=== PATIENT | male | born 1985 | race Caucasian/White ===

== ENCOUNTER 2017-05-12 14:30 | Emergency (ER) | payer OTHER ==
[~2017-05-12] VITALS: Ht 182.9 cm; Wt 86.2 kg
[2017-05-12] MEDS ORDERED: KLONOPIN1 M1 PO (14:41)
[2017-05-12] MEDS ORDERED: ZOLOFT25 M1 PO (14:42)
--- NOTE | 2017-05-12 14:47 | ED PSYCHIATRIC COMPLAINT ---
History of Present Illness General Chief Complaint: Psychiatric Related Complaint Stated Complaint: BIBA +SI/ANXIETY Source: patient Exam Limitations: no limitations Reconcile Medications Clonazepam (Klonopin) 1 MG TABLET 1 TAB PO TIDPRN ANXIETY (Reported) Sertraline HCl (Zoloft) 25 MG TABLET 1 TAB PO DAILY DEPRESSION (Reported) Triage Note: BIBA FROM [facility], REPORTING +SI X 3 DAYS, HX OF ATTEMPT ON 2016. PATIENT DENIES PLAN THIS TIME, DENIES HI. PATIENT ALERT, ORIENTED, DENIES CP OR DIFFICULTY BREATHING. PATIENT CALM, COOPERATIVE, PLEASANT. SECURITY CALLED FOR WANDING, PATIENT CHANGED INTO BLUE PAPER SCRUBS, VITALS OBTAINED. Triage Nurses Notes Reviewed? yes Onset: Abrupt Timing: recent history HPI: 31-year-old male comes into the emergency room with suicidal thoughts and anxiety and depression. He reports he has a history of trying to hurt himself in the past. He has been feeling increasingly anxious. Denies any antibiotics. Denies any drug use or alcohol use. He is on psychiatric medication currently. (Nestor Haines) Vital Signs & Intake/Output Vital Signs & Intake/Output Vital Signs Date Time Temp Pulse Resp B/P B/P Pulse O2 O2 Flow FiO2 Mean Ox Delivery Rate 05/13 1532 98.2 88 16 120/82 97 Room Air Allergies Coded Allergies: No Known Allergies (05/13/17) (Nayana MCKEON,Boby Velasco) Past History Travel History Traveled to [place] past 21 day No Medical History Any Pertinent Medical History? see below for history Neurological: NONE EENT: NONE Cardiovascular: NONE Respiratory: NONE Gastrointestinal: NONE Hepatic: NONE Renal: NONE Musculoskeletal: NONE Psychiatric: anxiety Endocrine: NONE Blood Disorders: NONE Cancer(s): NONE WILDLIFE BIOLOGIST/Reproductive: NONE Surgical History Surgical History: non-contributory Psychosocial History What is your primary language Setswana Tobacco Use: Quit >30 days ago ETOH Use: occasional use Illicit Drug Use: cocaine Family History Hx Contributory? No (Nestor Haines) Review of Systems Review of Systems Constitutional: Reports: no symptoms. EENTM: Reports: no symptoms. Respiratory: Reports: no symptoms. Cardiovascular: Reports: no symptoms. GI: Reports: no symptoms. Genitourinary: Reports: no symptoms. Musculoskeletal: Reports: no symptoms. Skin: Reports: no symptoms. Neurological/Psychological: Reports: see HPI. Hematologic/Endocrine: Reports: no symptoms. Immunologic/Allergic: Reports: no symptoms. All Other Systems: Reviewed and Negative (Nestor Haines) Physical Exam Physical Exam General Appearance: well developed/nourished, mild distress Head: atraumatic Eyes: Bilateral: normal appearance. Ears, Nose, Throat: normal ENT inspection, hearing grossly normal Neck: normal inspection Respiratory: normal breath sounds, no respiratory distress Cardiovascular: regular rate/rhythm Extremities: normal range of motion Neurological/Psychiatric: awake, alert Appearance/Memory/Insight: appropriate appearance Behavoir/Eye Contact/Speech: cooperative Thoughts/Hallucinations: no apparent hallucination Skin: intact, normal color, warm/dry (Nestor Haines) SAD PERSONS SAD PERSONS Response Value Male Sex? yes 1 Depression/Hopelessness? yes 2 Previous Attempts/Psych Care yes 1 Single//? yes 1 Social Support? has no support 1 Total 6 SAD PERSONS Done? yes (Boby Calderon DO) Progress Differential Diagnosis: dementia, drug intoxication, drug overdose, drug withdrawal, anxiety, depression, PTSD, schizoaffective, schizophrenia, bipolar, Plan of Care: Orders Procedure Date/time Status Regular Diet 05/13 B Active ED CRISIS PSYCH CONSULT 05/12 1527 Active Current Medications Sig/Kym Start time Last Medication Dose Stop Time Status Admin Sertraline HCl 25 MG AT BEDTIME 05/13 2199 AC (Zoloft) Mirtazapine 7.5 MG AT BEDTIME 05/12 2199 UNVr 05/12 (Remeron) 2049 Zolpidem Tartrate 10 MG AT BEDTIME 05/12 2199 AC 05/12 (Ambien) 205 Clonazepam 1 MG TIDPRN PRN 05/12 1944 AC 05/13 (Klonopin 1MG Tab) 05/20 1943 0643 Laboratory Tests 05/12/17 1606: Anion Gap 11, Estimated GFR > 60, BUN/Creatinine Ratio 16.7, Glucose 115 H, Calcium 9.7, Total Bilirubin 0.6, AST 17, ALT 40, Alkaline Phosphatase 92, Total Protein 7.4, Albumin 4.3, Globulin 3.1, Albumin/Globulin Ratio 1.4, CBC w Diff NO MAN DIFF REQ, RBC 4.99, MCV 87.3, MCH 28.6, MCHC 32.8 L, RDW 13.1, MPV 7.9, Gran % 82.7 H, Lymphocytes % 12.6 L, Monocytes % 4.7, Eosinophils % 0, Basophils % 0, Absolute Granulocytes 7.2 H, Absolute Lymphocytes 1.1 L, Absolute Monocytes 0.4, Absolute Eosinophils 0, Absolute Basophils 0, Serum Alcohol < 10.0 Hand-Off Endorsed To: Boby Kraus MD (Nestor Haines) Comments: 05/12/2017 7:43:35 PM patient signed out to me by VEGA. At this point patient is an ongoing bed search. 05/13/2017 7:10:32 AM patient signed out to Dr. Calderon at shift foreign exchange services manager. (Boby Kraus MD) Departure Departure Condition: Stable Departure Forms: Customer Survey General Discharge Information (Nestor Haines) Departure Disposition: OTHER [facility] ([facility]) Clinical Impression Primary Impression: Depression Comments 05/13/17 3:15 PM Patient was signed out to nh by Dr. Kraus at 7 AM. He has been accepted for admission to [facility] to their inpatient psychiatric unit for depression. The accepting doctor is Dr. Nguyen. (Boby Calderon DO) Absolute Monocytes 0.4, Absolute Eosinophils 0, Absolute Basophils 0, Serum Alcohol < 10.0 (Nestor Haines) Comments: 05/12/2017 7:43:35 PM patient signed out to me by VEGA. At this point patient is an ongoing bed search. 05/13/2017 7:10:32 AM patient signed out to Dr. Calderon at shift foreign exchange services manager. (Boby Kraus MD) Departure Departure Condition: Stable Departure Forms: Customer Survey General Discharge Information (Nestor Haines) Departure Disposition: OTHER [facility] ([facility]) Clinical Impression Primary Impression: Depression Comments 05/13/17 3:15 PM Patient was signed out to me by Dr. Kraus at 7 AM. He has been accepted for admission to [facility] to their inpatient psychiatric unit for depression. The accepting doctor is Dr. Nguyen. (Boby Calderon DO
--- NOTE | 2017-05-12 16:14 | ED PSY CRISIS COLLATERAL NOTE ---
Collateral Note Collateral Note Family/Inform/Stanislav Contacts: Spoke with Susie Irvin from [facility], who had called to report that they were sending patient to E.D. via ambulance as Susie very concerned as patient has been depressed, yet he has stopped taking his medication, and that he had a serious suicide attemp in December and now can't stay locally with his brother, who feels that he cannot adequately care for patient. So, patient has been staying with his father and mother who live in [place]. Consequently, patient has not been regularly attewnding [facility] IOP, as it takes more motivation than Wi;ll can exhibit--as well as time-- inorder to go to [facility] from [place] Patient has been hospitalized a number of times. He is treated for depression, and is currently being seen by Petra Mariscal APRN at [facility]. Patient is taking Clonazapam 3- 4x per day.; Sertraline 100m.g. daily and ambien h.s. (unsure of dose). Patient has not refilled these scripts. Patient's father is coming to E D with patient, however, father does not speak Portuguese. [facility] feel that patient at risk. They report that he has extremely poor history of follow-up.
[2017-05-12 16:20] LABS: ABSOLUTE BASOPHIL COUNT 0 /CUMM (0.0-0.2); ABSOLUTE EOSINOPHIL COUNT 0 /CUMM (0.0-0.7); ABSOLUTE GRANULOCYTE CT 7.2 /CUMM (1.4-6.5); ABSOLUTE LYMPH COUNT 1.1 /CUMM (1.2-3.4); ABSOLUTE MONOCYTE COUNT 0.4 /CUMM (0.10-0.60); BASOPHIL % 0 % (0.0-2.0); EOSINOPHIL % 0 % (0-5); GRANULOCYTE % 82.7 % (42.2-75.2); HEMATOCRIT 43.6 % (42-52); MEAN CORPUSCULAR HGB 28.6 PG (27.0-31.0); MEAN CORPUSCULAR HGB CONC 32.8 G/DL (33.0-37.0); MEAN CORPUSCULAR VOLUME 87.3 FL (80.0-94.0); MEAN PLATELET VOLUME 7.9 FL (7.4-10.4); PLATELET COUNT 290 /CUMM (130-400); RBC DISTRIBUTION WIDTH 13.1 % (11.5-14.5); RED BLOOD CELL CT 4.99 /CUMM (4.70-6.10); WHITE BLOOD CELL COUNT 8.7 /CUMM (4.8-10.8)
--- NOTE | 2017-05-12 18:10 | ED PSYCH CRISIS CONSULTATION ---
See Addendum Crisis Consult Basic Assessment Date of Consult: 05/12/17 Responsible Person/Accompanied By: self Insurance Authorization: Insurance #1: Insurance name: FRANCIA ALEXANDER Phone number: Policy number: [id number] Group number: Authorization number: ED Provider: Patient's ED Provider: Nestor Haines Primary Care Physician: Patient's PCP: Patient Has No Primary Care Dr PCP's Phone Number: Current Psychiatrist: [facility] Chief Complaint: Psychiatric Related Complaint Patient's Quote: "I am anxious and depressed, I am suffering." Present Illness: The pt is a 31yo single male BIBA from [facility] at [facility] due to depression and SI. The pt presents alert, oriented and cooperative with goal directed speech. The pt reports he is anxious, depressed and suffering. The pt reports SI yesterday and today with a plan to slit his wrist or neck. The pt stated he does not care about ending his life and the only thing stopping him is concern his parents will be sad. The pt reports a serious attempt 12/2016 by cutting his wrist. The pt has a scar from his wrist to his elbow on his left arm and stated he needed 26 stitches. The pt was hospitalized in [place] after this attempt. The pt reports poor concentration and poor appetite. The pt reports significant difficulty falling asleep and difficulty staying asleep. The pt reports he has difficulty getting out of bed due to poor motivation. The pt denies alcohol use and his toxicology screen is positive for Cocaine and Benzodiazepines. The pt reports he tried cocaine (snorting) for the first time 2 days ago. The pt reports he felt "worse" after using the cocaine. The pt reports he is prescribed Klonopin from [facility]. The pt is requesting inpatient treatment and stated he will return to his parents home after discharge. Completed the C-SSRS with the pt who has mulitple risk factors and minimal protective factors (completed C-SSRS placed in chart). After discharge from the hospital in [place] the pt moved in with his brother in [place]. The pt reports continued SI leading to hospitalizations at [facility] (02/2017) and [place] (03/2017). The pt reports very supportive brothers and parents. The pt moved back in with his parents in [place] but is enrolled in [facility] at [facility]. The pt reports he prefers the behavioral [place] but traveling for [facility] is difficult. The pt reports multiple stressors since Nov 2016 including being laid off from his job and break up with a girlfriend. The pt reports he was prescribed Zoloft, Ambien, Remeron and Klonopin for the past 1 month. The pt reports he took his medication daily for 1 month until running out 3 days ago. The pt reports he has 2 herniated discs and is prescribed 10mgs Oxycodone that he takes approximately 1x per week. The pt reports a pain management clinic in [place] prescribes his Oxycodone. The pt reported he was first prescribed the Oxycodone 2 years ago and took 10mg pill daily for a year. The pt stated he noticed withdrawal if he missed a dose so he cut down on his own. Reviewed the collateral report from [facility] stating the [facility] staff believe the pt is at risk. Discussed pt's current presentation and hx with Dr. Lassiter, plan is for inpatient treatment. A bed search will be conducted due to no available beds at [facility]. The pt stated he is in agreement with this plan. Patient's Address: [address] [place] [address] Other Phone Number: Who Do You Live With? Family Family/Informants Interviewed: Care staff (see collateral report) Current Medications - Scheduled Medications Clonazepam (Klonopin) 1 MG TABLET 1 TAB PO TIDPRN ANXIETY (Reported) Entered as Reported by Romina Forman on 05/12/17 1441 Sertraline HCl (Zoloft) 25 MG TABLET 1 TAB PO DAILY DEPRESSION (Reported) Entered as Reported by Romina Forman on 05/12/17 1442 Laboratory Results: Laboratory Tests 05/12/17 1606: Anion Gap 11, Estimated GFR > 60, BUN/Creatinine Ratio 16.7, Glucose 115 H, Calcium 9.7, Total Bilirubin 0.6, AST 17, ALT 40, Alkaline Phosphatase 92, Total Protein 7.4, Albumin 4.3, Globulin 3.1, Albumin/Globulin Ratio 1.4, CBC w Diff NO MAN DIFF REQ, RBC 4.99, MCV 87.3, MCH 28.6, MCHC 32.8 L, RDW 13.1, MPV 7.9, Gran % 82.7 H, Lymphocytes % 12.6 L, Monocytes % 4.7, Eosinophils % 0, Basophils % 0, Absolute Granulocytes 7.2 H, Absolute Lymphocytes 1.1 L, Absolute Monocytes 0.4, Absolute Eosinophils 0, Absolute Basophils 0, Serum Alcohol < 10.0 05/12/17 1410: Urine Opiates Screen 101, Methadone Screen < 40, Barbiturate Screen < 60, Ur Phencyclidine Scrn < 6.00, Amphetamines Screen < 100, U Benzodiazepines Scrn 285 H, Urine Cocaine Screen > 1000 H, Urine Cannabis Screen < 5.00 (Nilton Leone) Allergies - Coded Allergies: No Known Allergies (05/13/17) (Cody José LCSW) Addendum Addendum Patient's crisis reassessment completed 05/13/2017 @ 14:30 p.m. This sign writer hand reviewed past 12 hour's nursing notes - no significant events. Patient was resting in bed when this sign writer hand asked to meet with him. He presents alert, oriented, calm. He reports he "barely slept" last night and assessed mood as "not great." Patient reports feeling anxious. No concern with appetite. Patient asked about hygiene while being held in the ED - this sign writer hand advised patient can request to shower or obtain toiletries from sitters stationed in the crisis area or request this from nursing staff. Patient specified no other concerns. He is aware of the plan for the transfer bed search / inpatient psychiatric admission. (Cody José LCSW) Past History Past Medical History Neurological: NONE EENT: NONE Cardiovascular: NONE Respiratory: NONE Gastrointestinal: NONE Hepatic: NONE Renal: NONE Musculoskeletal: NONE Psychiatric: anxiety Endocrine: NONE Blood Disorders: NONE Cancer(s): NONE FLUE BLOWER/Reproductive: NONE Past Surgical History Surgical History: non-contributory Psychosocial History Strengths/Capabilities: pt is seeking treatment, supportive family, stable housing Physical Limitations (Interventions): noncontributory Psychiatric Treatment History Psych Treatment Psychiatric Treatment Yes Inpatient Treatment Yes Outpatient Treatment Yes Location of Treatment Inpt: [facility]. Outpt: [facility] Reason for Treatment Depression, Anxiety, SI Dates of Treatment 12/2016 - present Response to Treatment poor Diagnosis by History: depression, anxiety Substance Use/Abuse History Drug Use/Abuse Substances Used/Abused Yes Substance Used/Abused Cocaine First Use 05/10/17 Last Used 05/10/17 How much used/taken pt unable to quantify How often 1x For how long pt reports using cocaine 1x Route of use snort Substance Abuse Treatment Substance Abuse Treatment Past Substance Abuse [place] No (Nilton Leone) Current Mental Status Mental Status Orientation: Person, Place, Situation Affect: Anxious, Depressed, Sad Speech: WNL Neuro-vegetative: Anhedonia, Appetite Decreased, Energy Decreased, Helpless, Loss of Interest, Sleep Disturbance Appearance Appearance- Dress/Hygiene: appropriate Behaviors Thought Process: WNL Thought Content: WNL Memory: WNL Insight: Fair SI/HI Risk Assessment Past Suicidal Ideation/Attempts Yes Current Suicidal Ideation/Att Yes Past Homicidal Ideation/Att: No Current Homicidal Ideation/Attempts No Degree of Intent: Plan, States Intent Danger To: Self Gravely Disabled: n/a Risk Factors: access to lethal means, high anxiety/distress, history of suicide atmpts, SA/MH hospitalized, substance abuse, poor impulse control, lack of outcome concern, male Lethality Ratin PTSD Checklist PTSD Done? patient declined ED Management Sitter: Yes Restraints: No (Nilton Leone) DSM5/PS Stressors/Medical Prob Diagnosis' (DSM 5, Stressors, Medical): F32.9 Unspecified Depressive Disorder F41.9 Unspecified Anxiety Disorder Current GAF: 28 (Nilton Leone) Departure Disposition Psych Medical Clearance Date: 05/12/17 Medically Cleared at: 1645 Time Started: 1650 Time Ended: 1720 Psychiatrist Consulted: Dr. Lassiter Date Disposition Established: 05/12/17 Time Disposition Established: 1755 Plan for Disposition - Modality: Bed Search Facility: Bed Search Rationale for Disposition: Pt is a significant risk to self and in need of hospitalization. Type of IP Admission: Voluntary Referrals Patient Has No Primary Care Dr (PCP/Family) (Nilton Leone)
[2017-05-13 15:32] VITALS: BP 120/82
--- NOTE | 2017-05-14 00:54 | ED PSYCHIATRIST/APRN CONSULT ---
Psychiatrist/RESEARCH METHODOLOGIST ED Consult Assessment and Plan: 31 year old gentleman with a history of depression, SI who was brought in from [facility] at [facility] with suicidal thoughts. He has a significant suicide attempt history in 2017 by cutting wrist. He presented as anxious, depressed and withdrawn, with anhedonia and poor motivation. Plan was for admission. We met and he was quiet, withdrawn and poorly engaged. He appeared somewhat regressed. Stated that he physically didnt feel well and that he felt his Zoloft was to working for him. Did not know what else would help apart from clonazepam. Denied active suicidal thoughts but admitted to having them recently. He minimized his drug use, his cocaine was positive (also bz but he stated he was using clonazepam). A: 31 y/o man w/ active suicidal thoughts, poor response to treatment, anxious, withdrawn with poor energy. Needs stabilization of his sx at this time. Plan: IP admission, per note he was accepted to [facility].
== END 2017-05-13 15:55 | disposition short-term general hospital (02) ==
LOC: ERH 14:30
PROVIDERS: Physician Assistant Medical
DX: F32.9 Major depressive disorder, single episode, unspecified (principal)
CPT/HCPCS: 80307; G0463; G0480